=== PATIENT | female | born 1970 | race Caucasian/White ===

== ENCOUNTER 2021-06-02 09:45 | Outpatient (REF) | payer OTHER, SELFPAY ==
--- NOTE | ~2021-06-02 | MR_ITS ---
EXAMINATION: MR BRAIN WITHOUT AND WITH CONTRAST CLINICAL INFORMATION: Seizure disorder. COMPARISON: No relevant prior imaging. TECHNIQUE: Multiplanar MR imaging of the brain was performed without and with contrast. A total of 10 mL Gadavist was utilized for this examination. FINDINGS: There is a fluid-filled cleft along the undersurface of the right anterior temporal lobe with a margin of hemosiderin staining along its surfaces. There is no identifiable mass on postcontrast images. No abnormal enhancement visualized elsewhere within the intracranial compartment. No intracranial mass effect or midline shift. No abnormal extra-axial collection. Lateral and third ventricles are normal. No hydrocephalus. Midline structures including the cervicomedullary junction are normal. No acute bone marrow signal changes. Dedicated coronal oblique imaging reveals symmetric size, signal intensity, and morphological appearance of the hippocampal formations. No evidence of mesial temporal sclerosis. A few scattered nonspecific foci of T2 FLAIR signal hyperintensity are visualized within the periventricular white matter. No acute territorial infarct. Intracranial vascular flow voids are maintained. There is no mastoid middle ear effusion. No active paranasal sinus disease. Globes and orbits are symmetric. MR/MR head/brain wo/w con IMPRESSION: There is hemosiderin staining along the margins of a fluid filled cleft along the undersurface of the right anterior temporal lobe that is contiguous with the temporal horn. Findings may represent chronic changes of old trauma or hemorrhage. No identifiable underlying mass or enhancement is demonstrated on this examination. At a few scattered nonspecific signal changes are visualized within the supratentorial white matter. No evidence of mesial temporal sclerosis.
== END 2021-06-02 09:46 | disposition home or self-care (01) ==
LOC: HO.MRI 09:45
PROVIDERS: Visit Provider Psychiatry & Neurology Neurology
DX: G40.909 Epilepsy, unspecified, not intractable, without status epilepticus (principal)
CPT/HCPCS: 70553; A9585

== ENCOUNTER 2024-08-28 15:50 | Outpatient (REF) | payer OTHER, SELFPAY ==
[2024-08-28 16:02] LABS: MANUAL DIFF FLAG NO
[2024-08-28 16:42] LABS: Basophils Percent Auto 0.4 % (0-2); Eosinophils Absolute Auto 0.4 X10*3/uL (0.0-0.4); Hematocrit 42.6 % (37.0-47.0); Hemoglobin 13.3 g/dl (12.0-16.0); Imm Gran Abs Auto 0.03 X10*3/uL (0.00-0.03); Imm Gran Pct Auto 0.3 % (0.0-0.4); Lymphocytes Absolute Auto 3.6 X10*3/uL (1.2-4.9); Lymphocytes Percent Auto 33.8 % (20-40); Mean Corpuscular HGB Conc 31.2 g/dl (31.0-35.0); Mean Corpuscular Hemoglobin 27.1 pg (27.0-33.0); Mean Corpuscular Volume 86.8 fL (80.0-98.0); Mean Platelet Volume 9.3 fL (9.4-12.3); Monocytes Absolute Auto 0.6 X10*3/uL (0.1-1.2); Monocytes Percent Auto 5.5 % (2-11); Platelet Count 382 X10*3/uL (160-400); Red Blood Count 4.91 X10*6/uL (4.20-5.50); Red Cell Distribution Width 15.6 % (11.0-16.0); White Blood Count 10.6 X10*3/uL (4.8-10.8)
[2024-08-28 17:08] LABS: Anion Gap 15 (12-20); Blood Urea Nitrogen 17 mg/dL (9-16); C Reactive Protein 1.58 mg/dL (< or = 0.50); Calcium 10.3 mg/dL (8.4-10.2); Carbon Dioxide 23 mmol/L (22-29); Chloride 109 mmol/L (96-108); Estimated Glomerular Filt Rate 49; Glucose Random 99 mg/dL (60-115); Potassium 4.8 mmol/L (3.3-5.1); Sodium 142 mmol/L (135-145)
[2024-08-28 17:24] LABS: Erythrocyte Sedimentation Rate 29 MM/HR (0-20)
== END 2024-08-28 15:51 | disposition home or self-care (01) ==
LOC: HO.LAB 15:50
PROVIDERS: PCP Internal Medicine; Visit Provider Registered Nurse
DX: G43.909 Migraine, unspecified, not intractable, without status migrainosus (principal)
CPT/HCPCS: 36415; 80048; 85025; 85652; 86140

== ENCOUNTER 2025-10-07 15:46 | Outpatient (AMB) | payer OTHER, MEDICAID, SELFPAY ==
--- NOTE | 2025-10-07 15:49 | A.OFFVIS_ITS ---
Intake Visit Reasons: 6m migraine Allergies No Known Allergies Allergy (Verified 10/07/25 15:53) Medication List - Last Reconciled 10/07/25 by Marquita Sutherland CNP atorvastatin 40 mg PO BEDTIME diazepam 5 mg PO DAILY PRN gabapentin 800 mg PO TID hydroxyzine HCl 50 mg PO BEDTIME PRN quetiapine 400 mg PO BEDTIME ropinirole 1 mg PO QPM sertraline 200 mg PO BEDTIME topiramate mg PO HPI Comments Details: She was doing okay. She stopped propranolol and sumatriptan. She had about 1 week of headaches in 08/2025 that resolved on their own, no specific trigger identified. No significant headaches or migraines otherwise. She was taking gabapentin three times a day, no medication side effects. No seizures. Sleep was okay with Seroquel. Lot better after stopping Tylenol completely, headaches settled down. Tolerated propranolol. Headaches respond to sumatriptan 100mg 1/2-1 tab, but headache comes back after medication wears off. Tramadol did not help. No specific triggers. MRI was negative. On 08/10/2024, she had headache, felt off balance, and hands were shaking. She went to ER and was admitted to [facility] for 5 days where she had labs and imaging done. She is claustrophobic and apparently moved a bit during scans, but there was apparently no acute findings. Headaches were severe generalized pressure-type pain around the whole head with some photophobia. No sonophobia, nausea, or vomiting. She had been taking handfuls of Tylenol, about 6-7x/day. Headaches are better after taking medication and worsen when medication wears off. No specific triggers. No further tremors in hand. No head trauma. No recent seizures. Her mother and sister have history of migraines. She had blood clot in RUE in past and was on Eliquis which has since been discontinued and had lingering weakness in right arm. No seizures. She wants to stay on Gabapentin for seizures although she has been told it is not very effective drug and not choice drug for her. In 10/2019 at [facility], she started to feel funny and couldn't keep track of conversations and was acting confused and mentally off. She then got up to go to the bathroom and collapsed on the floor and had a generalized tonic-clonic convulsion with urinary incontinence. When she woke up, she was confused and denied that there was any problem. She was admitted to a hospital in [place], [place] and had imaging studies and an EEG. She was put on gabapentin 600 mg 3 times a day. Since then, she's had no further events and feels fine. She has not been driving. She wants to proceed with weight loss surgery and wants clearance to drive and for surgery. There is no previous history of seizures. She is not sure of any previous head trauma. She was told that there may be some scar on the frontal part of her brain. But there is no official reading of that. Her mood disorder is under control with her current medications. [facility] Medical History (Updated 10/07/25 @ 15:53 by Marquita Sutherland CNP) Loss of consciousness Single seizure Mood disorder Depression Surgical History (Updated 08/01/25 @ 10:37 by Marquita Sutherland CNP) S/P cholecystectomy Family History (Updated 08/01/25 @ 10:37 by Marquita Sutherland CNP) Mother Headache Sister Headache Review of Systems Const Denies chills, Denies daytime sleepiness, Denies difficulty sleeping, Denies fatigue, Denies fever(s), Denies frequent falls, Reports headache(s), Denies increased appetite, Denies poor appetite, Denies snoring, Denies weakness, Denies weight gain and Denies weight loss Eyes Denies loss of vision ENT Denies vertigo, Denies dizziness, Reports headache(s) and Denies neck pain Card Denies chest pain at rest, Denies chest pain with activity, Denies syncope, Denies leg edema, Denies palpitations, Denies dyspnea and Denies dyspnea on exertion Resp Denies cough, Denies dyspnea, Denies dyspnea on exertion and Denies snoring GI Denies abdominal pain, Denies constipation, Denies heartburn, Denies diarrhea and Denies nausea Denies urinary frequency, Denies urinary incontinence and Denies urinary urgency Musc Denies abnormal gait, Denies back pain, Denies myalgias, Denies arthralgias, Denies neck pain, Denies numbness and Denies tingling Neuro Denies abnormal gait, Denies vertigo, Denies dizziness, Denies syncope, Denies frequent falls, Reports headache(s), Denies lack of coordination, Denies loss of vision, Denies memory loss, Denies numbness, Denies Other visual disturbances, Denies restless legs, Denies seizure-like activity, Denies tingling, Denies paresthesias, Denies tremor(s) and Denies weakness Psych Reports anxiety, Denies depression, Denies auditory hallucinations, Denies memory loss and Denies visual hallucinations Endo Denies fatigue and Denies palpitations Physical Exam Const Other: General Appearance:? normal, in no acute distress. Heart:? S1, S2 normal, no murmurs. Lungs:? clear anteriorly and posteriorly. Musculoskeletal:? normal. Extremities:? no edema. Psych:? alert, oriented, cognitive function intact, cooperative with exam. Neuro Other: Abnormal Neurological Findings:?none.? Mental Status: alert and oriented X 3. Normal attention, orientation, memory, and affect. Cranial Nerves: Pupils are equal, round, and reactive to light. External ocular muscles are intact. Visual abdullahi are full, no ptosis. Face is symmetrical, no facial weakness or droop. Facial sensations are normal. Tongue protrudes in midline. Palate elevates symmetrically. Shoulder shrugging is normal Motor Examination: Normal muscle tone, bulk and strength. No atrophy or fasciculations. No drift of the extended upper extremities. DTR 2+. Plantars are flexor. Sensory Exam: Normal light touch, temperature, pinprick, vibration, and joint- position sensations. Rhomberg sign is absent. Coordination: No ataxia. No titubation. Gait Exam: Within normal limits. Cerebellar Signs: [id number] is okay. Extrapyramidal System: No tremor, rigidity with normal facial expressions. No bradykinesia. No bradyphrenia. Normal arm swing and posture. No propulsion or retropulsion. Speech: Normal. Results Reviewed Results Reviewed: Oct 2019. MRI brain showed a multilobular cystic abnormality in the right temporal lobe adjacent to the temporal horn of the ventricle without masseffect or gliosis. 2019. EEG showed mild diffuse slowing 02/27/20 EEG showed diffuse theta slowing without seizure discharges 06/02/21 MRI shows right anteior temporal cyst with hemosiderin stained margins, adjacent to the temporal horn of the left ventricle.No enhancement or mass effect. ?old trauma. MRI and CT from 10/23/19 reviewed : same findings. 08/2024 CTA head/neck ([facility]): No acute vascular findings. No large vessel occlusion, aneurysm, dissection or significant stenosis (reported). 08/2024 MRI brain ([facility]): Fairly limited study with extensive motion artifacts. Nonspecific mild scattered white matter signal changes. No acute infarct (reported). Assessment & Plan Assessment & Plan (1) Seizure disorder: Code(s): G40.909 - Epilepsy, unspecified, not intractable, without status epilepticus Category: Medical Plan: Continue gabapentin 800mg 1 tablet three times a day. Follow up in 6 months or sooner as needed. (2) Migraine: Code(s): G43.909 - Migraine, unspecified, not intractable, without status migrainosus Category: Medical Qualifiers: Migraine type: unspecified Status migrainosus presence: without status migrainosus Intractability: not intractable Qualified Code(s): G43.909 - Migraine, unspecified, not intractable, without status migrainosus Plan: She stopped propranolol and sumatriptan - no significant migraines at this time, can consider restarting these medications in the future if symptoms return. (3) Medication overuse headache: Code(s): G44.40 - Drug-induced headache, not elsewhere classified, not intractable Category: Medical Plan . Medications: New gabapentin 800 mg PO TID 90 tabs 5RF 30 days Coding Level of Care Code Est Pt Level 4 (77349) Diagnoses Seizure disorder G40.909 Migraine without status migrainosus, not intractable, unspecified migraine type G43.909 Migraine type: unspecified Status migrainosus presence: without status migrainosus Intractability: not intractable Medication overuse headache G44.40
--- OUTSIDE RECORDS SUMMARY | 2025-10-07 17:42 | XMS_ITS | Clinical Summary ---
Author Organization [facility] Address [address] [place] [address] Care Team Providers Care Basketballs And Footballs Reverser Name Role Phone Geovany Isaac Get Primary Care Provider [phone] Allergies Active Allergy Reactions Criticality Noted Date Comments Codeine 04/20/2022 Medications Sertraline HCl (ZOLOFT) 100 MG tablet TAKE 1 TABLET BY MOUTH EVERY DAY DIRECTED 90 0 1 Active QUEtiapine Fumarate (SEROquel) 100 MG tablet 60 0 1 Active predniSONE (DELTASONE) 20 MG tablet 10 0 2 Active Naloxone HCl (Narcan) 4 MG/0.1ML Liquid 2 0 2 Active Nicotine Polacrilex (COMMIT) 4 MG lozenge 72 0 2 Active Nicotine (NICODERM CQ) 21 MG/24HR 2 0 2 Active hydrOXYzine HCl (ATARAX) 25 MG tablet TAKE 1 TABLET BY MOUTH TWICE A DAY NEEDED 180 0 2 Active Gabapentin (NEURONTIN) 400 MG capsule 84 0 2 Active QUEtiapine Fumarate (SEROquel) 200 MG tablet 14 0 2 Active FLUTICASONE PROPIONATE, NASAL, (FT Allergy Relief 24 HR) 50 MCG/ACT nasal spray TAKE 2 SPRAY(S) (NASAL) 1 TIME PER DAY FOR 30 DAYS EACH NOSTRIL 16 0 2 Active NEOMYCIN-POLYMYX IN-HC, OTIC, (CORTISPORIN) otic solution INSTILL 4 DROPS INTO LEFT EAR CANAL 3 TIMES A DAY FOR 5 DAYS 10 0 2 Active Gabapentin (NEURONTIN) 800 MG tablet 90 0 2 Active Amoxicillin-Pot Clavulanate (AUGMENTIN) 500-125 MG per tablet TAKE 1 TABLET BY MOUTH EVERY 8 HOURS FOR 7 DAYS 21 0 2 Active Active Problems Problem Noted Date Diagnosed Date Non-recurrent acute serous otitis media of left ear 04/20/2022 Immunizations Immunization Administration Dates Next Due COVID-19, mRNA (Pfizer Pre F all 2022) Monovalent, 30 mcg/0.3 ml 03/10/2021 Social History Tobacco Use Types Packs/Day Years Used Date Smoking Tobacco: Never Assessed Comments Unknown Sex and Gender Information Value Date Recorded Sex Assigned at Not on file Legal Sex Female 12:55 PM EDT Gender Identity Not on file Sexual Orientation Not on file Plan of Treatment Health Maintenance Due Date Last Done Comments Hepatitis C Screening 1971 Pap Smear 1987 DTaP/Tdap/Td (1 - Tdap) 12/22/1989 Hep B (1 of 3 - 19+ 3-dose series) 12/22/1990 Mammogram/Breast Imaging 2011 Colon Cancer Screening 12/22/2016 Pneumococcal 50+ years (1 of 1 - PCV) 12/22/2021 Zoster (Shingrix) (1 of 2) 12/22/2021 COVID-19 Vaccine (2 - 2024-2 6 season) 2025 03/10/2021 Influenza (#1) 2025 RSV (1 - 1-dose 75+ series) 12/22/2046 HPV Vaccine (No Doses Required) Completed Hep A Aged Out No longer eligi ble based on patient's age to complete this topic Hib Aged Out No longer eligi ble based on patient's age to complete this topic Meningococcal ACWY Aged Out No longer eligible based on patient's age to complete this topic Care Teams Basketballs And Footballs Reverser Relationship Specialty Start Date End Date Isaac [address] [place] [address] PCP - General 05/16/23
--- OUTSIDE RECORDS SUMMARY | 2025-10-07 17:42 | XMS_ITS | Clinical Summary ---
Author Organization [facility] Prior to 03/09/25 Address [address] [place] [address] Care Team Providers Care Music Publisher Name Role Phone Duarte Heredia Primary Care Provid er Allergies Active Allergy Reactions Criticality Noted Date Comments Bee Sting Anaphylaxis High 11/19/2015 Bee Sting 03/06/2017 Codeine Hives 06/09/2015 Codeine 03/06/2017 Phentermine Other (See Comments) 06/09/2015 Systemic lupus Medications Medication Sig Dispensed Refills Start Date End Date Status QUEtiapine (SEROQUEL) 25 MG tablet TAKE 1 TABLET BY MOUTH EVERY NIGHT AT BEDTIME 30 tablet 2 02/12/2016 Active sertraline (ZOLOFT) 25 MG tablet Take 8 tablets (200 mg total) by mouth daily. 0 Active rOPINIRole (REQUIP) 0.25 MG tablet Take 2 tablets (0.5 mg total) by mouth every night at bedtime as needed (restless legs). 0 Active hydrOXYzine (ATARAX) 25 MG tablet Take 2 tablets (50 mg total) by mouth every night at bedtime as needed for anxiety. 0 Active gabapentin (NEURONTIN) 800 MG tablet Take 1 tablet (800 mg total) by mouth 3 (three) times a day. 90 tablet 0 03/19/2024 Active topiramate (TOPAMAX) 200 MG tablet Take 2 tablets (400 mg total) by mouth every night at bedtime. 60 tablet 0 03/19/2024 Active acetaminophen (TYLENOL) 325 MG tablet Take 2 tablets (650 mg total) by mouth every 6 (six) hours as needed. 120 tablet 0 03/19/2024 Active apixaban (ELIQUIS) 5 MG TABS tablet Take 1 tablet (5 mg total) by mouth every 12 (twelve) hours. 60 tablet 0 03/24/2024 Active Active Problems Problem Noted Date Diagnosed Date Acute deep vein thrombosis ( DVT) of upper extremity, unspecified laterality, unspecified vein 03/16/2024 MDD (major depressive disord er), recurrent episode, moderate 09/08/2015 Major depressive disorder, recurrent episode, mo derate 08/07/2015 Depression 06/09/2015 Family History Medical History Relation Name Comments Anxiety disorder Father Anxiety disorder Sister Depression Sister Relation Name Status Comments Father Sister Social History Tobacco Use Types Packs/Day Years Used Date Smoking Tobacco: Every Day Nicotine Inhalation Smokeless Tobacco: Never Tobacco Cessation:Ready to Q uit: Not Asked; Counseling Given: Not Answered Alcohol Use Standard Drinks/Week Comments No 0 (1 standard drink = 0.6 oz pur e alcohol) Sex and Gender Information Value Date Recorded Sex Assigned at Female 10/23/2021 4:05 PM EST Gender Identity Female 03/16/2024 12:05 PM EDT Sexual Orientation Not on file Job Start Date Occupation Industry Not on file Not on file Not on file Last Filed Vital Signs Vital Sign Reading Time Taken Comments Blood Pressure 119/71 05/03/2024 1:10 PM EDT Pulse 86 05/03/2024 1:10 PM EDT Temperature 37 C (98.6 F) 05/03/2024 1:10 PM EDT Respiratory Rate 16 03/19/2024 8:20 AM EDT Oxygen Saturation 96% 05/03/2024 1:10 PM EDT Inhaled Oxygen Concentration - - Weight 90.3 kg (199 lb) 05/03/2024 1:10 PM EDT Height 165.1 cm (5' 5 ) 05/03/2024 1:10 PM EDT Body Mass Index 33.12 05/03/2024 1:10 PM EDT Plan of Treatment Health Maintenance Due Date Last Done Comments Hepatitis B Vaccines (1 of 3 - 3-dose series) 1971 Hepatitis C Screening 1971 Depression Screening 1983 Preventative Health Evaluation 12/22/1989 Tobacco Cessation Counseling 12/22/1989 DTap / Tdap / Td (1 - Tdap) 12/22/1990 Cervical Cancer Screening (P ap Smear) 12/22/1992 Pneumococcal Vaccine (2 of 2 - PCV) 11/15/2013 11/15/2012 Colon Cancer Screening (Colonoscopy) 12/22/2016 Breast Cancer Screening (Mammogram) 12/22/2021 Shingrix-Zoster Vaccine (1 of 2) 12/22/2021 COVID-19 Vaccine (2 - 2024-2 6 season) 2025 03/10/2021 Influenza Vaccine (#1) 2025 11/15/2012 RSV Ped < 20 months Aged Out No longe r eligible based on patient's age to complete this topic Advance Directives For more information, please contact: [phone] Documents on File Type Date Recorded Patient Management Associate Expl anation Advance Directive and Living Will 01/13/2016 8:35 AM Latest Code Status on File Code Status Date Activated Date Inactivated Comments Full Code 03/16/2024 11:06 PM 03/19/2024 7:26 PM This code status was ascertained in the following way: . Care Teams Music Publisher Relationship Specialty Start Date End Date Duarte Heredia MBBS [address] [place] [address] PCP - General Internal Medicine 03/16/24
--- OUTSIDE RECORDS SUMMARY | 2025-10-07 17:42 | XMS_ITS | Data Portability ---
Author Organization [facility], [address] Address [address] [place] [address] Care Team Providers Care Supervisor Tumbling And Rolling Name Role Phone CLARISSA ALDO Primary Care Provider Assessment No assessment recorded. Plan of Treatment Reminders Order Date Submit Date Provider Last Modified By Organization Details Last Modified Time Details Appointments None recorded. Lab rapid SARS CoV 2 Ag, QL IA, respirato ry specimen 2022 023 [email or web address] [address], [address] [place], [address], 17:00:18 Referral emergency medicine referral 2022 023 [facility], [address] [place], [address], 18:32:56 Procedures None recorded. Surgeries None recorded. Imaging XR, chest, 2 view 2022 023 [email or web address] [facility], [address] [place] [address], [address], 18:11:43 Medication Orders acetamino phen 325 mg tablet 2022 023 [email or web address] [id number], [phone] [place], [address], 17:57:51 albuterol sulfate 2.5 mg/3 mL (0.083 %) solution for nebulizat ion 2022 023 [email or web address] Not available 3 18:21:46 ipratropi um bromide 0.02 % solution for inhalatio n 2022 023 [email or web address] Not available 18:21:46 Patient TargetsNo targets recorded. Patient Instructions Encounter Date Encounter Id Patient Instructions Last Modified By Organization Details Last Modified Time 01/01/2023 [id number] Based on your ex am and presentation my recommendation if for you to go immediately to the Emergency Room. The ER is better equipped to be able to assess you and do more studies to make sure that your complaint is not life threatening. Unfortunately, in the urgent care setting we do not have the ability to do many tests and studies. My concern is for you, which is why my recommendation is the Emergency Room. [email or web address] Not available 01/01/2023 17:56:57 Reason for Referral Emergency Medicine Referral for Wheezing Referring Physician: Alka Maya, Urgent Care, Encounter Date: 01/01/2023 Results Created Date Observation Date Name Description Value Unit Range Abnormal Flag Note LastModifiedBy Organization Detail LastModifiedTime 01/02/2001/01/2023 rapid SARS CoV 2 Ag, QL IA, respi rator y speci men Unknown Analyte Normal =Negat kita Not Available [address] [place], [address], 01/01/2023 16:44:18 01/02/20 23 01/01/2023 rapid SARS CoV 2 Ag, QL IA, respi rator y speci men Unknown Analyte negati ve Not Available [address] [place], [address], 01/01/2023 16:44:18 01/02/20 23 01/01/2023 XR, chest , 2 view No observ ation record ed. [email or web address] [facility] [address] [facility] [place], [address], 01/01/2023 20:18:48 01/02/20 XR, chest , 2 view No observ ation record ed. [email or web address] [facility] [address] [place], [address], 01/01/2023 18:26:58 Result Notes None recorded. Problems Name Problem SNOMED Code Status Onset Date Resolution Date Notes Provider Name and Address Organization Details Recorded Time Depressive disorder 60387647 Active 023 CHRISTOPHER AR moreno PA - [facility] 16:41:42 Problem Notes None recorded. Procedures Surgical History Date Name Laterality Status Provider Name and Address Organization Details Recorded Time 01/02/20 Nebulizer Treatment completed WILMAN LAWRENCE [address], [place], [address], [place] - [facility] 01/01/2023 17:58:05 total hysterectomy completed CHRISTOPHER DRINKWINE PA - [facility] 01/01/2023 16:42:04 tonsillectomy completed CHRISTOPHER DRINKWINE PA - [facility] 01/01/2023 16:42:14 section completed CHRISTOPHER DRINKWINE PA - [facility] 01/01/2023 16:42:31 Imaging Results None recorded. Procedure Notes None recorded. Medical Equipment None Reported. Allergies No known drug allergies Medications Name Sig Start Date Stop Date Status Note LastModified by Organization Details LastModified Time amoxicillin 500 mg capsule TAKE 1 CAPSULE BY MOUTH THREE TIMES A DAY FOR 7 DAYS 01/01 completed Not Available Not Available Not Available metformin 500 mg tablet TAKE 1 TABLET BY MOUTH TWICE A DAY WITH MEALS active Not Available Not Available No t Available neomycin-po lymyxin-hyd rocort 3.5 mg/mL-10,00 0 unit/mL-1 % ear solution INSTILL 4 DROPS INTO LEFT EAR CANAL 3 TIMES A DAY FOR 5 DAYS active Not Available Not Available No t Available clonidine HCl 0.1 mg tablet TAKE 1 TABLET BY MOUTH ONCE A DAY NEEDED FOR ANXIETY, INSOMNIA active Not Available Not Available No t Available acetaminoph en 325 mg tablet Take 650 mg by oral route. 2022 active Not Available Not Available Not Avai lable albuterol sulfate 2.5 mg/3 mL (0.083 %) solution for nebulizatio n Inhale 3 mL by nebulizat ion route. 2022 active Not Available Not Available Not Avai lable hydrocodone 5 mg-acetamin ophen 325 mg tablet TAKE 1 TABLET BY MOUTH EVERY 4 TO 6 HOURS NEEDED FOR PAIN active Not Available Not Available No t Available gabapentin 400 mg capsule TAKE 2 CAPSULES BY MOUTH 3 TIMES A DAY active Not Available Not Available No t Available sertraline 100 mg tablet TAKE 2 TABLETS BY MOUTH AT BEDTIME active Not Available Not Available No t Available quetiapine 200 mg tablet TAKE 1 TABLET BY MOUTH AT BEDTIME active Not Available Not Available No t Available topiramate 25 mg tablet TAKE 1 TABLET BY MOUTH AT BEDTIME active Not Available Not Available No t Available hydroxyzine HCl 50 mg tablet TAKE 1 TABLET BY MOUTH EVERY DAY AT BEDTIME NEEDED active Not Available Not Available No t Available quetiapine 100 mg tablet TAKE 2 TABLETS BY MOUTH AT BEDTIME active Not Available Not Available No t Available bupropion HCl SR 100 mg tablet,12 hr sustained-r elease TAKE 1 TABLET BY MOUTH DAILY IN THE MORNING active Not Available Not Available No t Available oxycodone-a cetaminophe n 5 mg-325 mg tablet TAKE 1 TABLET BY MOUTH EVERY 8 HOURS NEEDED FOR PAIN active Not Available Not Available No t Available gabapentin 800 mg tablet TAKE 1 TABLET BY MOUTH THREE TIMES A DAY active Not Available Not Available No t Available hydroxyzine HCl 25 mg tablet TAKE 1 TABLET BY MOUTH TWICE A DAY NEEDED active Not Available Not Available No t Available topiramate 100 mg tablet TAKE 1 TABLET BY MOUTH AT BEDTIME active Not Available Not Available No t Available fluticasone propionate 50 mcg/actuati on nasal spray,suspe nsion TAKE 2 SPRAY(S) (NASAL) 1 TIME PER DAY FOR 30 DAYS EACH NOSTRIL active Not Available Not Available No t Available ipratropium bromide 0.02 % solution for inhalation Inhale 2.5 mL by inhalatio n route. 2022 active Not Available Not Available Not Avai lable diazepam 5 mg tablet TAKE 1 TABLET BY MOUTH 1 HOUR PRIOR TO DENTAL APPOINTME NT NEEDED FOR ANXIETY active Not Available Not Available No t Available amoxicillin 500 mg-potassiu m clavulanate 125 mg tablet TAKE 1 TABLET BY MOUTH EVERY 8 HOURS FOR 7 DAYS active Not Available Not Available No t Available bupropion HCl SR 200 mg tablet,12 hr sustained-r elease TAKE 1 TABLET BY MOUTH DAILY IN THE MORNING active Not Available Not Available No t Available topiramate 50 mg tablet TAKE 1 TABLET BY MOUTH AT BEDTIME active Not Available Not Available No t Available hydrocodone 5 mg-acetamin ophen 300 mg tablet TAKE 1 TABLET BY MOUTH EVERY 4 TO 6 HOURS NEEDED FOR PAIN active Not Available Not Available No t Available Sutab 1.479-0.188 -0.225 gram tablet ONE DOSE OF 12 TABS ON THE DAY PRIOR TO PROCEDURE . ONE DOSE OF 12 TABS ON THE DAY OF THE PROCEDURE . active Not Available Not Available No t Available Vitals Date Recorded Body height Body mass index (BMI) Body weight Oxygen saturation Pain severity - 0-10 verbal numeric rating [Score] - Reported Heart rate Respiratory rate Body temperature Systolic And Diastolic Provider Name and Address Organization Details Last Updated DateTime 167.64 cm 40.4 kg/m2 761904. 09 g 96 % 0 107 /min 20 /min 99.1 [degF] 130/80 mm[Hg] CHRISTOPHER JOYNER [facility] 16:43:44 Social History Question Answer Notes LastModified by USINE IO Details LastModified Time Tobacco Smoking Status Former Smoker CHRISTOPHER moreno [email or web address] 01/01/2023 16:43:11 Have You Recently Traveled Abroad? No Information not available 01/01/2023 Sex: Unknown Functional Status Question Answer Note LastModified by USINE IO Details LastModified Time Do you use any illicit or recreational drugs? No Information not available 01/01/2023 Do you or have you ever used any other forms of tobacco or nicotine? No Information not available 01/01/2023 Mental Status None recorded. Family History Relationship Description Onset Age of this Age Resolved Age Notes LastModified by Organization Details LastModified Time Father No current problems or disability [email or web address] Not available 12/09 16:41:50 Mother No current problems or disability [email or web address] Not available 12/09 16:41:51 Medical History No medical history recorded. Gynecological HistoryNo gynecological history recorded. Obstetrics History GPAL:G 0 P 0 0 0 0 Immunizations Vaccine Type Date Status Note Provider Nam e and Address Organization Details Recorded Time COVID-19, mRNA, LNP-S, PF, 30 mcg/0.3 mL dose 03/10/2021 completed WILMAN Zepeda - [facility] 01/01/2023 17:28:20 Past Encounters Encounter ID Performer Location Encounter Start Date Encounter Closed Date Diagnosis/Indication Diagnosis SNOMED-CT Code Diagnosis ICD10 Code Diagnosis IMO Codes Diagnosis Note [id number] [facility] [place] [address] 09/06/2015 13:53:18 09/06/2015 14:23:49 [id number] [address] [facility] [place] [address] 05/05/2016 14:57:25 05/05/2016 16:06:31 [id number] [address] [place] [address] 11/23/2016 12:46:02 11/23/2016 13:39:00 [id number] [id number] [facility] [place] [address] 10/17/2015 08:38:05 10/17/2015 09:25:22 [id number] [address] [facility] [place] [address] 08/29/2015 08:09:51 08/29/2015 09:27:42 [id number] [address] [place] [address] 10/24/2020 17:15:21 10/24/2020 20:01:05 [id number] [facility] LAWRENCE [address] [place] [address] 01/01/2023 16:22:59 01/01/2023 18:11:43 Exposure to SARS-CoV-2 443674186 Z20.822 Wheezing 51418925 R06.2 EMS Transfer. No relief with nebulizer treatment. X-ray showing reactive airway. Has fever. COVID Negative. Need higher acuity workup since feels shortness of breath and severe headache. Need potentiall y Ct scan to rule out something secondary not seen on ER. Headache 57464275 R51.9 Health Concerns Section Related Observation LastModified by Organization Detai ls LastModified Time None Recorded Concern Status LastModified by Organization Details LastModified Time None Recorded Advance Directives Directive None Recorded Payers Insurance Date Sequence Insurance Name Policy Number Policy Osorio Covered Member ID Osorio Member ID Guarantor Name 01/12/2023 1 [facility] [id number] Eliel Hardy [id number] Genna Hardy Notes Date Note Type Note Provider Name and Address Organization Details Recorded Time 3 text/html CoughReported by PatientHPIFor quality, patient reportsdry and wet. For severity, patient reportsworseningbut reportssevere. For timing, patient reportsworseningbut reportsgradual. For associated symptoms, patient reportschills,wheezing,p ost nasal drip, andcan't get a deep breathbut reportsno fever,no chest pain,no heartburn,no nausea, andno vomiting. For source of patient information, patient reportsinformation obtained from patientandpatient arrived at urgent care ambulatory. For duration, patient reports4 days. For context, (stopped vaping 2 weeks ago.).The patient reports on Tuesday started to fill ill. SHe reports started to cough and that has slowly progress. Fever of 102.0. She reports increased wheezing and coughing. Can't sleep. Feeling fatigued. Stopped vaping 2 weeks ago. THe patient reports green mucous. Denies sore throat. She reports bodyaches as well. WILMAN LAWRENCE [address] [place], [address], [place] - [facility] 01/01/2023 18:13:07 OBGyn Episode No OBEpisode recorded.
--- OUTSIDE RECORDS SUMMARY | 2025-10-07 17:42 | XMS_ITS | Clinical Summary ---
Author Organization [facility] Address [address] [facility] [place] [address] Phone Care Team Providers Care Sample Selector Name Role Phone Osmani Arce MD Primary Care Provider [phone] Allergies Active Allergy Reactions Criticality Noted Date Comments Codeine 07/19/2020 Social History Tobacco Use Types Packs/Day Years Used Date Smoking Tobacco: Smoker, Current Status Unknown Smokeless Tobacco: Never Alcohol Use Standard Drinks/Week Comments Yes 0 (1 standard drink = 0.6 oz pur e alcohol) Education Answer Date Recorded Are you interested in more education? Not on abebe e 02/04/2023 Are you concerned about learning? Not on file 02/04/2023 No 02/04/2023 No 02/04/2023 Digital Access Answer Date Recorded No 03/08/2023 No 03/08/2023 Reliable internet access at home? Not on file 03/08/2023 Device with a working camera? Not on file Comments Unknown Sex and Gender Information Value Date Recorded Sex Assigned at Female 07/19/2020 6:56 PM EDT Legal Sex Female 6:46 PM EDT Gender Identity Female 07/19/2020 6:56 PM EDT Sexual Orientation Choose not to disclose 2019 6:56 PM EDT Last Filed Vital Signs Vital Sign Reading Time Taken Comments Blood Pressure 112/78 07/19/2020 10:32 PM EDT Pulse 79 07/19/2020 10:32 PM EDT Temperature 36.9 C (98.4 F) 07/19/2020 10:32 PM EDT Respiratory Rate 19 07/19/2020 10:32 PM EDT Oxygen Saturation 99% 07/19/2020 10:32 PM EDT Inhaled Oxygen Concentration - - Weight 81.6 kg (180 lb) 07/19/2020 6:58 PM EDT Height 165.1 cm (5' 5 ) 07/19/2020 6:58 PM EDT Body Mass Index 29.95 07/19/2020 6:58 PM EDT Plan of Treatment Not on file Medical Devices Not on file Insurance [facility] [address] [place] [place], [place] [id number] [facility] POS [facility] POS Care Teams Sample Selector Relationship Specialty Start Date End Date Osmani Arce MD [address] [place] [address] [place] [address] PCP - General Family Medicine 07/19/20 Additional Source Comments The information contained in this document represents components of the legal health record. It is not the complete legal health record.[facility]
--- OUTSIDE RECORDS SUMMARY | 2025-10-07 17:42 | XMS_ITS | Patient Health Record ---
Author Organization [facility] Address [address] [facility] [place] [address] Reason For Referral No Information Plan Of Treatment No Information Insurance Providers Payer Name Payer Address Payer Phone Subscriber Number Group Number Insured Name Patient Relationship to Insured Coverage Start Date Coverage End Date [facility] [address] [place] [address] [phone] [id number] Genna Hardy Self - patient is the insured
--- OUTSIDE RECORDS SUMMARY | 2025-10-07 17:42 | XMS_ITS | Encounter Summary ---
Author Organization [facility] Address [address] [place] [address] Care Team Providers Care Caster Operator Name Role Phone Terry Westfall MD Primary Care Provider [phone] Encounter Details Date Type Department Care Team (Late st Contact Info) Description 01/04/2023 Scanned Document [facility] [place] [address] [place] [address] Social History Tobacco Use Types Packs/Day Years Used Date Smoking Tobacco: Never Smokeless Tobacco: Current Alcohol Use Standard Drinks/Week Comments No 0 (1 standard drink = 0.6 oz pur e alcohol) AUDIT-C Answer Date Recorded Frequency of Alcohol Consumption Never 04/26/2018 Average Number of Drinks Not on file 018 Frequency of Binge Drinking Not on file 04/09 PHQ-2 Answer Date Recorded PHQ-2 Total Score 0 04/13/2022 Comments No Sex and Gender Information Value Date Recorded Sex Assigned at Not on file Legal Sex Female 1:21 PM EDT Gender Identity Not on file Sexual Orientation Not on file documented as of this encounter Plan of Treatment Not on file documented as of this encounter Visit Diagnoses Not on filedocumented in this encounter Care Teams Caster Operator Relationship Specialty Start Date End Date Terry Westfall MD PCP - General Internal Medicine 04/13/22 08/22/23 documented as of this encounter
--- OUTSIDE RECORDS SUMMARY | 2025-10-07 17:42 | XMS_ITS | Clinical Summary ---
Author Organization [facility] Address [address] [place] [address] Care Team Providers Care Pipelaying Fitter Name Role Phone Unavailable Primary Care Provider Unavailabl e Allergies Active Allergy Reactions Criticality Noted Date Comments Bee Venom Anaphylaxis High 11/19/2015 Codeine Hives Medium 04/26/2018 Phentermine Other (See Comments) 06/09/2015 Systemic lupus Medications QUEtiapine (SEROquel) 200 MG tablet Take 200 mg by mouth nightly. 6 Active gabapentin (NEURONTIN) 800 MG tablet TAKE 1 TABLET BY MOUTH THREE TIMES A DAY FOR 30 DAYS 2 Active hydrOXYzine HCl (ATARAX) 25 MG tablet Take 25 mg by mouth 2 (two) times a day as needed. 2 Active sertraline (ZOLOFT) 100 MG tabletIndication s:Major depressive disorder with current active episode, unspecified depression episode severity, unspecified whether recurrent Take 1 tablet (100 mg total) by mouth daily. 30 tablet 2 Active Sodium Sulfate-Mag Sulfate-KCl (Sutab) 8109-599-288 MG TabIndications:C olon cancer screening One dose of 12 tablets on the Day Prior to procedure. One dose of 12 tablets on the Day Of the procedure. 24 tablet 2 Active sodium-potassium -magnesium sulfates (Suprep Bowel Prep Kit) 17.5-3.13-1.6 GM/177ML Solution solutionIndicati ons:Special screening for malignant neoplasms, colon Follow directions provided by physician's office. 354 mL 2 Active Active Problems Problem Noted Date Diagnosed Date Family history of gastric ulcer 04/21/2022 Personal history of gastric ulcer 04/21/2022 Assessment & Plan (04/21/2022 2:47 PM EDT): Pt reports having gastric ulcers found on EGD two years ago at [facility] (unknown provider). Never had a repeat EGD. Asymptomatic. Will obtain repeat EGD with colon for further evaluation. Annual physical exam 04/13/2022 Assessment & Plan (04/15/2022 6:35 PM EDT): Patient counseled re: healthy lifestyle measures, including but not limited to diet and exercise.Preventive care such as immunizations discussed. Age and gender appropriate tests ordered. Major depressive disorder with current active ep isode 04/13/2022 Assessment & Plan (04/15/2022 6:38 PM EDT): Continue sertraline Encounter for screening for HIV 04/13/2022 Assessment & Plan (04/15/2022 6:36 PM EDT): Lab test ordered. Cervical cancer screening 04/13/2022 Assessment & Plan (04/15/2022 6:37 PM EDT): S/P hysterectomy, not needed Vitamin D deficiency 04/13/2022 Assessment & Plan (04/15/2022 6:39 PM EDT): Continue Vit D supplements if any. Check levels and replenish orally ( OTC or prescription) if needed. BMI 38.0-38.9,adult 04/13/2022 Assessment & Plan (04/15/2022 6:35 PM EDT): Weight loss counseling done. Class 2 obesity without seri ous comorbidity with body mass index (BMI) of 38.0 to 38.9 in adult 04/13/2022 Assessment & Plan (04/15/2022 6:35 PM EDT): See plan under BMI. Colon cancer screening 04/13/2022 Assessment & Plan (04/21/2022 2:45 PM EDT): Due for screening colonoscopy, will order. Assessment & Plan (04/15/2022 6:36 PM EDT): Refer to GI Menopause 04/13/2022 Assessment & Plan (04/15/2022 6:38 PM EDT): Asymptomatic Seizures 04/13/2022 Overview (04/15/2022): Neuro - Dr. Valiente Assessment & Plan (04/15/2022 6:39 PM EDT): Continue Rx and neuro follow up. Right knee pain 04/13/2022 Assessment & Plan (04/15/2022 6:38 PM EDT): Better now, was diagnosed with Lane's cyst. Synovial cyst of right popliteal space Assessment & Plan (04/15/2022 6:34 PM EDT): Recently diagnosed.Counseled patient about what it is.No intervention needed at this time. History of 2019 novel coronavirus disease (COVID -19) 04/13/2022 Overview (04/15/2022): March 2022 Assessment & Plan (04/15/2022 6:37 PM EDT): Appears to have recovered well. Hearing loss of left ear 04/13/2022 Assessment & Plan (04/15/2022 6:34 PM EDT): Referred to ENT for evaluation MONALISA (obstructive sleep apnea) 04/13/2022 Assessment & Plan (04/15/2022 6:34 PM EDT): Use CPAP Resolved Problems Problem Noted Date Diagnosed Date Resolved Date Encounter for screening mamm ogram for malignant neoplasm of breast 04/13/2022 12/21/2023 Sprain of ligament of lumbosacral joint 04/27/2016 04/13/2022 Moderate episode of recurren t major depressive disorder 08/07/2015 04/13/2022 Depression 06/09/2015 04/13/2022 Social History Tobacco Use Types Packs/Day Years [...] on file Sexual Orientation Not on file Last Filed Vital Signs Vital Sign Reading Time Taken Comments Blood Pressure 122/70 04/21/2022 2:12 PM EDT Pulse 103 04/21/2022 2:12 PM EDT Temperature 36.4 C (97.6 F) 04/21/2022 2:12 PM EDT Respiratory Rate 16 04/13/2022 9:33 AM EDT Oxygen Saturation 96% 04/13/2022 9:33 AM EDT Inhaled Oxygen Concentration - - Weight 109 kg (241 lb) 04/21/2022 2:12 PM EDT Height 167.6 cm (5' 6 ) 04/21/2022 2:12 PM EDT Body Mass Index 38.9 04/21/2022 2:12 PM EDT Plan of Treatment Health Maintenance Due Date Last Done Comments Hepatitis C Virus Screening 1971 HIV Screening 12/22/1984 DTaP/Tdap/Td Vaccines (1 - Tdap) 12/22/1990 Hepatitis B Vaccines (1 of 3 - 19+ 3-dose series) 12/08 Pap Smear (Ages 21-65) 12/22/1992 Mammogram 2011 Colonoscopy 12/22/2016 Pneumococcal Vaccines 50+ (1 of 1 - PCV) 12/22/2021 Zoster (Shingles) Vaccine (1 of 2) 12/22/2021 Influenza Vaccine 05/10/2025 COVID-19 Vaccine (1 - 2024- season) 2025 RSV Vaccine 50 years and old er and Patients (1 - 1-dose 75+ series) 12/22/2046 Insurance [facility]
--- OUTSIDE RECORDS SUMMARY | 2025-10-07 17:42 | XMS_ITS | Clinical Summary ---
Author Organization [facility] Address [address] [place] [address] Phone Care Team Providers Care Radiator Tester Name Role Phone Duarte Heredia MD Primary Care Provider Allergies Active Allergy Reactions Criticality Noted Date Comments Bee Venom Protein (Honey Bee) Anaphylaxis High 11/19/2015 Codeine Hives 06/09/2015 Rzgtnhjcdx-Xkocsotgifgeo-P aff Low 08/13/2024 Itching Penicillins Anaphylaxis High 08/11/2024 Other Reaction(s): anaphylaxis, hypotension. 10/11/2024: Patient states that she has tolerated Augmentin in the past. She is unaware of an allergy to penicillin. Phentermine Other 06/09/2015 Systemic lupus Medications gabapentin (NEURONTIN) 800 mg tablet Take 1 tablet (800 mg total) by mouth 3 (three) times a day. 4 Active topiramate (TOPAMAX) 200 mg tablet Take 2 Tablets by mouth 4 Active sertraline (ZOLOFT) 100 mg tablet Take 1 Tablet by mouth daily. 2 qhs Active rOPINIRole (REQUIP) 0.5 mg tablet Take 1 Tablet by mouth at bedtime. - Active QUEtiapine (SEROquel) 200 mg tablet Take 150 mg by mouth at bedtime. Active nicotine (NICODERM CQ) 14 mg/[address] 1 patch on the skin 1 (one) time each day at the same time. Active propranolol LA (INDERAL LA) 60 mg 24 hr capsule Take 1 capsule (60 mg total) by mouth 1 (one) time each day. Do not crush, chew, or split. Active SUMAtriptan (IMITREX) 100 mg tablet Take 1 tablet (100 mg total) by mouth 1 (one) time each day if needed for migraine. 30 tablet 1 4 Active bisacodyL (DULCOLAX) 5 mg EC tablet Take 2 tablets by mouth right before beginning bowel prep. See instructions provided by the office 2 tablet 5 Active diazePAM (VALIUM) 5 mg tablet Take 1 tablet (5 mg total) by mouth. 5 Active methadone (DOLOPHINE) 10 mg tablet Take 6 tablets (60 mg total) by mouth. Active atorvastatin (LIPITOR) 40 mg tablet Take 1 tablet (40 mg total) by mouth at bedtime. 90 tablet 1 5 Active Active Problems Problem Noted Date Diagnosed Date Diverticulitis 10/11/2024 Hypercholesterolemia 09/05/2024 History of DVT (deep vein thrombosis) 09/05/2024 Intractable migraine without status migrainosus 09/05/2024 Multiple joint pain 08/13/2024 Muscle pain 08/13/2024 Constipation 08/13/2024 Anxiety and depression 07/18/2024 Seizures 07/18/2024 Patient on methadone maintenance therapy 024 Hearing loss of left ear 04/13/2022 Vitamin D deficiency 04/13/2022 MDD (major depressive disord er), recurrent episode, moderate 08/07/2015 Sialadenitis 09/03/2009 Resolved Problems Problem Noted Date Diagnosed Date Resolved Date Amnesia 08/13/2024 02/19/2025 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 09/05/2024 Opioid use disorder in remission 07/18/2024 02/19/2025 MONALISA (obstructive sleep apnea) 04/13/2022 02/19/2025 Immunizations Immunization Administration Dates Next Due Influenza trivalent, with pr eservative (Fluzone; Afluria) 6mo and older 11/15/2012 [employer] SARS-CoV-2 COVID-19, mRNA, LNP-S, preservative free 03/10/2021 Pneumococcal polysaccharide 23 valent (Pneumovax 23) 2yo and older 11/15/2012 Surgical History Surgery Date Site/Laterality Comments OTHER SURGICAL HISTORY PROCEDURE:c sections HYSTERECTOMY PROCEDURE:HYSTERECTOMY SECTION PROCEDURE: SECTION SECTION, LOW TRANSVERSE Medical History Medical History Date Comments Obesity DX:Obesity Depression DX:Depression Anxiety DX:Anxiety Use of opiates for therapeut ic purposes DX:Use of opiates for therap eutic purposes Kidney stones DX:Kidney stones Right subclavian vein thromb osis ([facility], [facility] V28) 07/18/2024 Family History Medical History Relation Name Comments Anxiety disorder Father Anxiety disorder Sister Depression Sister Relation Name Status Comments Father Sister Social History Tobacco Use Types Packs/Day Years Used Date Smoking Tobacco: Every Day Smokeless Tobacco: Never Tobacco Cessation:Ready to Q uit: Not Asked; Counseling Given: Not Answered Alcohol Use Standard Drinks/Week Comments No 0 (1 standard drink = 0.6 oz pur e alcohol) Interpersonal Safety Answer Date Record ed Physical Abuse Unrecognized value 01/03/2025 Verbal Abuse Unrecognized value 01/03/2025 Comments No Sex and Gender Information Value Date Recorded Sex Assigned at Female 02/06/2024 11:21 AM EDT Legal Sex Female 6:06 AM EST Gender Identity Female 02/06/2024 11:21 AM EDT Sexual Orientation Straight 08/11/2024 7: 18 PM EDT Last Filed Vital Signs Vital Sign Reading Time Taken Comments Blood Pressure 120/60 02/19/2025 3:27 PM EDT Pulse 78 02/19/2025 3:27 PM EDT Temperature 36.7 C (98 F) 02/19/2025 3:27 PM EDT Respiratory Rate 16 02/19/2025 3:27 PM EDT Oxygen Saturation 97% 01/03/2025 11:31 AM EDT Inhaled Oxygen Concentration - - Weight 91.9 kg (202 lb 9.6 oz) 02/19/2025 3:27 P M EDT Height 162.6 cm (5' 4 ) 02/19/2025 3:27 PM EDT Body Mass Index 34.78 02/19/2025 3:27 PM EDT Plan of Treatment Health Maintenance Due Date Last Done Comments Drug Screen 1970 Non-Opioid Controlled Substance Agreement 1970 DTaP,Tdap,and Td Vaccines (1 - Tdap) 12/22/1990 Hepatitis A Vaccines (1 of 2 - Risk 2-dose series) 12/22/1990 Hepatitis B Vaccines (1 of 3 - 19+ 3-dose series) 12/22/1990 Cervical Cancer Screening: P ap Smear 12/22/1992 Pneumococcal Vaccine: 50+ Years (2 of 2 - PCV) 11/15/2013 11/15/2012 Zoster Vaccines (1 of 2) 12/22/2021 HIV Screening 09/12/2022 Hepatitis C Screening 09/12/2022 Social Influencers of Health Screening 09/12/2022 Depression Screening 10/10/2024 03/28/2024 COVID-19 Vaccine (2 - 2024-2 6 season) 2025 03/10/2021 Influenza Vaccine (#1) 2025 11/15/2012 Breast Cancer Screening 03/30/2026 03/30/20 24, 03/30/2024 Cholesterol Screening (Lipid Panel) 08/12/2029 08/12/2024 Colorectal Cancer Screening: Colonoscopy 01/03/2035 01/03/2025 RSV Immunization Adult Patients (1 - 1-dose 75+ series) 12/22/2046 HIB Vaccines Aged Out No longer eligi ble based on patient's age to complete this topic HPV Vaccines Aged Out No longer eligi ble based on patient's age to complete this topic IPV Vaccines Aged Out No longer eligi ble based on patient's age to complete this topic MMR Vaccines Aged Out No longer eligi ble based on patient's age to complete this topic Meningococcal ACWY Vaccine Aged Out N o longer eligible based on patient's age to complete this topic Meningococcal B Vaccine Aged Out No l onger eligible based on patient's age to complete this topic RSV Immunization Patients Under 20 months Aged Out No longer eligible b ased on patient's age to complete this topic Varicella Vaccines Aged Out No longer eligible based on patient's age to complete this topic Procedures Procedure Name Priority Date/Time Associated Diagnosis Comments COLONOSCOPY Routine 01/03/2025 11:10 AM EDT Colon cancer screening LIPID PANEL WITH REFLEX TO DIRECT LDL Routine 08/12/2024 5:37 AM EST SCREENING MAMMOGRAPHY BI 2-VIEW BREAST INC CAD Routine 03/30/2024 2:26 PM EDT Encounter for screening mammogram for malignant neoplasm of breast HM DEPRESSION SCREENING Routine 03/28/2024 from Last 3 Months or Most Recently Relevant to Health Maintenance Results * COLONOSCOPY Anesthesia - MAC; [facility] ENDOSCOPY (01/03/2025 11:10 AM EDT) Anatomical Region Laterality Modality Other 01/03/2025 10:5 2 AM EDT Impressions 01/03/2025 11:09 AM EDT - Diverticulosis in the sigmoid colon. - No specimens collected. Recommendation: - Use fiber, for example Citrucel, Fibercon, Konsyl or Metamucil. - Repeat colonoscopy in 10 years for screening purposes. Narrative 01/03/2025 11:09 AM EDT [facility] GI Patient Name: Genna Dale Procedure Date: 01/03/2025 10:52 AM Date of : 1970 Age: 54 Gender: Female Note Status: Finalized Attending MD: Deric Sanchez MD, Procedure Date No Time: 01/03/2025 Procedure: Colonoscopy Indications: Screening for colorectal malignant neoplasm Providers: Deric Sanchez MD Referring MD: Deric Sanchez MD Medicines: Propofol per Anesthesia Complications: No immediate complications. Estimated Blood Loss: Estimated blood loss: none. Procedure: Pre-Anesthesia Assessment: - ASA Grade Assessment: II - A patient with mild systemic disease. After I obtained informed consent, the scope was passed under direct vision. Throughout the procedure, the patient's blood pressure, pulse, and oxygen saturations were monitored continuously.The Olympus Pediatric Colonoscope was introduced through the anus and advanced to the cecum, identified by appendiceal orifice and ileocecal valve. The colonoscopy was performed without difficulty. The patient tolerated the procedure well. The quality of the bowel preparation was adequate. Findings: A few diverticula were found in the sigmoid colon. Procedure Code(s): --- Professional --- G0121, Colorectal cancer screening; colonoscopy on individual not meeting criteria for high risk Diagnosis Code(s): --- Professional --- Z12.11, Encounter for screening for malignant neoplasm of colon K57.30, Diverticulosis of large intestine without perforation or abscess without bleeding CPT copyright 202 [employer]. All rights reserved. The codes documented in this report are preliminary and upon air conditioning manager review may be revised to meet current compliance requirements. Deric Sanchez MD 01/03/2025 11:09:20 AM This report has been signed electronically.Deric Sanchez MD Number of Addenda: 0 Note Initiated On: 01/03/2025 10:52 AM Scope In: Scope Out: Endoscopy Department at [facility] - [address] [place] [id number] Procedure Note Deric Sanchez MD - 01/03/2025 [facility] Patient Name: Genna Dale Procedure Date: 01/03/2025 10:52 AM Date of : 1970 Age: 54 Gender: Female Note Status: Finalized Attending MD: Deric Sanchez MD, Procedure Date No Time: 01/03/2025 Procedure: Colonoscopy Indications: Screening for colorectal malignant neoplasm Providers: Deric Sanchez MD Referring MD: Deric Sanchez MD Medicines: Propofol per Anesthesia Complications: No immediate complications. Estimated Blood Loss: Estimated blood loss: none. Procedure: Pre-Anesthesia Assessment: - ASA Grade Assessment: II - A patient with mild systemic disease. After I obtained informed consent, the scope was passed under direct vision. Throughout theprocedure, the patient's blood pressure, pulse, and oxygen saturations were monitored continuously.The Olympus Pediatric Colonoscope was introduced through theanus and advanced to the cecum, identified byappendiceal orifice and ileocecal valve. The colonoscopy was performed without difficulty. The patient tolerated the procedure well. The quality of the bowel preparation was adequate. Findings: A few diverticula were found in the sigmoidcolon. Procedure Code(s): --- Professional --- G0121, Colorectal cancer screening; colonoscopy on individual not meeting criteria for high risk Diagnosis Code(s): --- Professional --- Z12.11, Encounter for screening for malignantneoplasm of colon K57.30, Diverticulosis of large intestine without perforation or abscess without bleeding CPT copyright 202 [employer]. All rights reserved. The codes documented in this report are preliminary and upon air conditioning manager reviewmay be revised to meet current compliance requirements. Deric Sanchez MD 01/03/2025 11:09:20 AM This report has been signed electronically.Deric Sanchez MD Number of Addenda: 0 Note Initiated On: 01/03/2025 10:52 AM Scope In: Scope Out: Endoscopy Department at [facility] - [address] [place] [id number] IMPRESSION: - Diverticulosis in the sigmoid colon. - No specimens collected. Recommendation: - Use fiber, for example Citrucel, Fibercon, Konsylor Metamucil. - Repeat colonoscopy in 10 years for screening purposes. us Deric Sanchez MD GI~PROCEDURE ORDERABLES Final Re sult * (ABNORMAL) Lipid panel with reflex to direct LDL (08/12/2024 5:37 AM EST) Cholesterol 330(H) 0 - 200 mg/dL LAB CHEMISTRY METHOD 08/12/2024 6:39 AM EST [facility] Triglycerides 393(H) <150 mg/dL LAB CHEMISTRY METHOD 08/12/2024 6:39 AM EST [facility] HDL 39 37 - 92 mg/dL LAB CHEMISTRY METHOD 08/12/2024 6:39 AM EST [facility] LDL Calculated 212(H) 50 - 130 mg/dL LAB CHEMISTRY METHOD 08/12/2024 6:39 AM EST [facility] VLDL Cholesterol Saud 78.6 mg/dL LAB CHEMISTRY METHOD 08/12/2024 6:39 AM EST [facility] Comment:No established refer ence range. Blood Venous blood specimen / Unknown Venipuncture / Unknown 08/12/2024 5:37 AM EST 08/12/2024 5:57 AM EST Mercy Pope MD LAB BLOOD ORDERABLES Final Res ult [facility] [address] [place] [address], [place] [phone] * SCREENING MAMMOGRAPHY BI 2-VIEW BREAST INC CAD (03/30/2024 2:26 PM EDT) Anatomical Region Laterality Modality Radiographic Elvia ging 03/28/2024 2:42 PM EDT Narrative 04/02/2024 10:53 AM EDT This is a summary report. The complete report is available in the patient's medical record. If you cannot access the medical record, please contact the sending organization for a detailed fax or copy. BILATERAL 3D DIGITAL SCREENING MAMMOGRAM History: Routine screening. No current breast complaints. Family history of breast cancer in aunt Comparison: Mammogram from 09/10/2022 Technique: Bilateral full-field digital 3D mammography was performed using standard CC and MLO projections CAD was used to evaluate this mammogram. Findings: Density: There are scattered areas of fibroglandular density-B RIGHT: No suspicious masses, groups of microcalcification or areas of architectural distortion identified. Stable typically benign parenchymal asymmetries LEFT: No suspicious masses, groups of microcalcifications or areas of architectural distortion identified. Stable typically benign parenchymal asymmetries IMPRESSION: : 1. No mammographic evidence of malignancy. BI-RADS Category 2 benign findings Recommendation: Routine annual screening mammography is recommended Procedure Note Colt Kamara MD - 09/03/2024 This is a summary report. The complete report is available in thepatient's medical record. If you cannot access the medical record, pleasecontact the sending organization for a detailed fax or copy. BILATERAL 3D DIGITAL SCREENING MAMMOGRAM History: Routine screening. No current breast complaints. Family historyof breast cancer in aunt Comparison: Mammogram from 09/10/2022 Technique: Bilateral full-field digital 3D mammography was performed usingstandard CC and MLO projections CAD was used to evaluate this mammogram. Findings: Density: There are scattered areas of fibroglandular density-B RIGHT: No suspicious masses, groups of microcalcification or areas ofarchitectural distortion identified. Stable typically benign parenchymalasymmetries LEFT: No suspicious masses, groups of microcalcifications or areas ofarchitectural distortion identified. Stable typically benign parenchymalasymmetries IMPRESSION: : 1. No mammographic evidence of malignancy. BI-RADS Category 2 benign findings Recommendation: Routine annual screening mammography is recommended us Duarte Heredia MD IMG XR PROCEDURES [place] l Result * Depression Screening (03/28/2024) Depression Screening abstracted us Historical Provider HEALTH MAINTENANCE Final Result from Last 3 Months or Most Recently Relevant to Health Maintenance [place] [id number] [facility] [employer] Advance Directives * Full Code - Confirmed (Latest Code Status on File) Date Activated Date Inactivated Comments 10/11/2024 9:15 PM 10/17/2024 4:48 PM This code stat us was ascertained in the following way: Code status discussion: discussion with patient To update the patient's code status, place a code status order. Do not modify or discontinue any currently active code status orders. * Full Code - Confirmed Date Activated Date Inactivated Comments 08/12/2024 3:14 AM 08/14/2024 3:[address] atus was ascertained in the following way: Code status discussion: discussion with patient To update the patient's code status, place a code status order. Do not modify or discontinue any currently active code status orders. Care Teams Radiator Tester Relationship Specialty Start Date End Date Duarte Heredia MD [address] [place] [address] PCP - General 03/16/24
--- OUTSIDE RECORDS SUMMARY | 2025-10-07 17:42 | XMS_ITS | Encounter Summary ---
Author Organization [facility] Address [address] [place] [id number] Care Team Providers Care Supervisor Tank Storage Name Role Phone Terry Westfall MD Primary Care Provider [phone] Encounter Details Date Type Department Care Team (Late st Contact Info) Description 01/06/2023 Scanned Document [facility] [place] [address] [place] [address] Social History Tobacco Use Types [...] on filedocumented in this encounter Care Teams Supervisor Tank Storage Relationship Specialty Start Date End Date Terry Westfall MD PCP - General Internal Medicine 04/13/22 08/22/23 documented as of this encounter
== END 2025-10-07 16:04 | disposition home or self-care (01) ==
LOC: HO.HSM 15:47
PROVIDERS: PCP Internal Medicine; Visit Provider Registered Nurse
DX: G40.909 Epilepsy, unspecified, not intractable, without status epilepticus (principal); G43.909 Migraine, unspecified, not intractable, without status migrainosus; G44.40 Drug-induced headache, not elsewhere classified, not intractable
CPT/HCPCS: 99214